=== PATIENT | female | born 1990 | race Hispanic/Latino ===

== ENCOUNTER 2022-12-14 14:54 | Emergency (ER) | payer OTHER ==
[~2022-12-14] VITALS: Ht 167.6 cm; Wt 93.4 kg
[2022-12-14 14:55] VITALS: BP 112/78; PULSE 77; RESP 16
[2022-12-14] MEDS ORDERED: ACETAMINOPHEN WITH CODEINE 1 TAB TAB PO ONE (16:00)
[2022-12-14] MEDS ORDERED: IBUP-2070 PO (17:37)
== END 2022-12-14 17:56 | disposition home or self-care (01) ==
LOC: EDH 14:54
DX: S83.8X2A Sprain of other specified parts of left knee, initial encounter (principal); X58.XXXA Exposure to other specified factors, initial encounter; Y93.89 Activity, other specified; Y92.89 Other specified places as the place of occurrence of the external cause; Y99.8 Other external cause status
CPT/HCPCS: 29505; 73562

== ENCOUNTER 2023-07-19 21:30 | Emergency (ER) | payer OTHER ==
[~2023-07-19] VITALS: Ht 172.7 cm; Wt 89.1 kg
[~2023-07-19 21:30] MED LIST: IBUP-2070 PO
[2023-07-19 21:47] LABS: BASOPHILS # (AUTO) 0.03 K/uL (0.00-0.20); BASOPHILS % (AUTO) 0.3 % (0.0-5.0); EOSINOPHILS # (AUTO) 0.15 K/uL (0.00-0.70); EOSINOPHILS % (AUTO) 1.3 % (0.0-8.0); HEMATOCRIT 41.4 % (36-48); IMMATURE GRANULOCYTE ABSOLUTE 0.06 K/uL (0-1); LYMPHOCYTES % (AUTO) 16.7 % (21.0-51.0); MEAN CORPUSCULAR HEMOGLOBIN 29.2 pg (27.0-33.0); MEAN CORPUSCULAR HGB CONC 33.8 g/dL (32.0-36.0); MEAN CORPUSCULAR VOLUME 86.3 fL (79-99); MONOCYTES # (AUTO) 0.9 K/uL (0.1-1.0); MONOCYTES % (AUTO) 7.6 % (3.0-13.0); NEUTROPHILS # (AUTO) 8.6 K/uL (1.8-7.7); NEUTROPHILS % (AUTO) 73.6 % (40.0-77.0); PLATELET COUNT (AUTO) 268 K/uL (130-400); RED CELL DISTRIBUTION WIDTH 12.1 % (11.0-15.5); WHITE BLOOD COUNT (AUTO) 11.7 K/uL (4.8-10.8)
[2023-07-19 21:48] LABS: APPEARANCE,URINE CLEAR (CLEAR); BILIRUBIN,URINE NEGATIVE (NEGATIVE); COLOR,URINE LIGHT-YELLOW (YELLOW); GLUCOSE, URINE (UA) NEGATIVE (NEGATIVE); KETONES,URINE NEGATIVE (NEGATIVE); LEUKOCYTE ESTERASE ,URINE 25 Leu/uL (NEGATIVE); NITRATE,URINE NEGATIVE (NEGATIVE); OCCULT BLOOD,URINE NEGATIVE (NEGATIVE); PH,URINE 5.5 (5.0-8.0); PROTEIN,URINE NEGATIVE (NEGATIVE); UROBILINOGEN,URINE 0.2 mg/dL (0.2-1.0)
[2023-07-19 21:49] LABS: ADD UA MICROSCOPIC YES
[2023-07-19 21:53] LABS: BACTERIA,URINE RARE /HPF (None Seen); MUCUS,URINE RARE LPF (None Seen); SQUAMOUS EPITHELIAL CELL,UR FEW /HPF (0-2); YEAST,URINE BUDDING RARE /HPF (None Seen)
[2023-07-19 21:54] LABS: HCG,QUALITATIVE URINE NEGATIVE (NEGATIVE)
[2023-07-19 22:02] LABS: SARS-CoV-2, RNA, NAAT NEGATIVE SARS CoV-2 (NEGATIVE)
[2023-07-19 22:03] LABS: RAPID GROUP A STREP positive (NEGATIVE)
[2023-07-19 22:07] LABS: INFLUENZA TYPE A Negative For Type A (NEGATIVE); INFLUENZA TYPE B Negative For Type B (NEGATIVE)
[2023-07-19 22:13] LABS: CREATININE 0.8 mg/dL (0.5-1.5); POTASSIUM 3.9 mmol/L (3.5-5.1)
[2023-07-19 22:17] LABS: ALBUMIN 3.8 g/dL (3.5-5.0); BILIRUBIN,TOTAL 0.3 mg/dL (0.2-1.0); TOTAL PROTEIN, SERUM 7.5 g/dL (6.0-8.3)
[2023-07-20] MEDS: FAMOTIDINE 20MG TAB PO ONE (00:54)
[2023-07-20] MEDS: METRONIDAZOLE 500 MG TABLET PO SCH (00:54)
[2023-07-20] MEDS: METOCLOPRAMIDE 10 MG TABLET PO ONE (00:54)
[2023-07-20] MEDS: PENICILLIN V POTASSIUM 500 MG TABLET PO ONE (00:56)
[2023-07-20] MEDS ORDERED: PENI500T2 PO (01:56)
[2023-07-20] MEDS ORDERED: METR-172 PO (01:56)
[2023-07-20] MEDS ORDERED: FAMO-136 PO (01:56)
[2023-07-20] MEDS ORDERED: METO-296 PO (01:56)
[2023-07-20 02:27] VITALS: BP 128/79; PULSE 88; RESP 19; O2SAT 99
== END 2023-07-20 02:30 | disposition home or self-care (01) ==
LOC: EDH 21:30
DX: K52.9 Noninfective gastroenteritis and colitis, unspecified (principal); J02.0 Streptococcal pharyngitis; N39.0 Urinary tract infection, site not specified; Z98.890 Other specified postprocedural states; Z20.822 Contact with and (suspected) exposure to COVID-19
CPT/HCPCS: 36415; 80053; 81001; 81025; 83690; 84484; 85025; 87635; 87804; 87880; 93005

== ENCOUNTER 2024-12-09 20:44 | Emergency (ER) | payer SELFPAY ==
[~2024-12-09] VITALS: Ht 170.2 cm; Wt 86.2 kg
[~2024-12-09 20:44] MED LIST changes: +FAMO-136 PO; +METO-296 PO; +METR-172 PO; +PENI500T2 PO
--- NOTE | 2024-12-09 21:19 | ERN ---
General Chief Complaint: Shoulder Injury/Pain Stated Complaint: LEFT SHOULDER PAIN Time Seen by MD: 20:51 History of Present Illness Initial Comments 34-year-old healthy female who was moving a bale of hay a day ago and today has excruciating pain that starts on her left lateral neck, she points to her trapezius, and then migrates down to her left deltoid and left tricep area. Distal neuro muscular intact. No deformation of left arm Allergies: Coded Allergies: No Known Allergies (Unverified Allergy, Unknown, 12/14/22) Home Meds Active Scripts Famotidine (Pepcid) 20 Mg Tablet, 20 MG PO BID, #60 TAB 2 Refills Prov:CHELSIE AGUIRRE Sr., MD 07/20/23 Metoclopramide HCl (Reglan) 10 Mg Tablet, 10 MG PO QIDP PRN for NAUSEA, #30 TAB 2 Refills Prov:CHELSIE AGUIRRE Sr., MD 07/20/23 Penicillin V Potassium (Penicillin V Potassium) 500 Mg Tablet, 1 TAB PO QID for 10 Days, #40 TAB 0 Refills Prov:CHELSIE AGUIRRE Sr., MD 07/20/23 Metronidazole (Metronidazole) 500 Mg Tablet, 500 MG PO QID for 10 Days, #40 TAB 0 Refills Prov:CHELSIE AGUIRRE Sr., MD 07/20/23 Ibuprofen (Ibuprofen) 600 Mg Tablet, 600 MG PO Q6H PRN for PAIN, #30 TAB Prov:JONNIE BERRIOS V [facility]ITION[facility] 12/14/22 Past Medical History Past Medical History: No Pertinent History Past Surgical History: ROS Dictation Review of systems is negative beyond the chief complaint and HPI. Physical Exam Neck Comment Left trapezius muscle tenderness. Extending down to left deltoid and then to the left triceps area. Distal neurovascular intact good arms and hands strength. MDM I have ordered plain films of her left shoulder. The plain films of her left shoulder show no fractures or dislocations. ED Course Orders Procedure Category Date Status Time Shoulder Comp 2+Vws Lt RAD 12/09/24 Taken 21:11 Orphenadrine Citrate PHA 12/09/24 Complete (Norflex) 21:30 Current Medications Medications (Trade) Dose Ordered Sig/Anne Route PRN Reason Start Time Stop Time Status Last Admin Dose Admin Orphenadrine Citrate (Norflex) 60 mg ONCE ONCE IM 12/09/24 21:30 12/09/24 21:31 DC 12/09/24 21:58 Vital Signs Date Time Temp Pulse Resp B/P (MAP) Pulse Ox O2 Delivery O2 Flow Rate FiO2 12/09/24 21:30 98.1 72 16 114/62 98 Room Air* 0 21 12/09/24 20:45 98.1 75 18 113/64 99 Room Air DX & DISP Disposition: Discharge Departure Impression: Primary Impression: Sprain of left shoulder Additional Impression: Acute neck sprain Condition: Stable Scripts Ketorolac Tromethamine (Toradol) 10 Mg Tab 1 TAB PO Q6HPRN PRN for pain for 5 Days, #20 TAB 0 Refills Prov: LENY BRAVO MD 12/09/24 Cyclobenzaprine HCl (Flexeril) 10 Mg Tab 10 MG PO TID for muscle sstiffness, #14 TAB 0 Refills Prov: LENY BRAVO MD 12/09/24 Additional Instructions: You have suffered a neck sprain and shoulder sprain from moving the bale of hay. Our x-rays show no fractures or noon dislocations. I have given you a muscle relaxant which should help with the pain and I have also given you a prescriptions for muscle relaxant and pain medication. Please treat the area with ice packs and rest. Always wrapped the ice and a towel do not place it directly in contact against the skin. Please follow-up with your primary care physician if these symptoms do not improve over the next several days. Referrals: SELF,REFERRAL (PCP) LENY BRAVO MD Dec 09, 2024 21:19
[2024-12-09] MEDS: ORPHENADRINE 60MG/2ML IM ONE (21:58)
[2024-12-09] MEDS ORDERED: KETO10 PO (22:01)
[2024-12-09] MEDS ORDERED: CYCL10TA16 PO (22:01)
[2024-12-09 22:25] VITALS: BP 114/62; PULSE 70; RESP 16; TEMP 98; O2SAT 98
--- NOTE | 2024-12-09 22:30 | HMCIMG ---
EXAM: CR Left Shoulder, 2 views. CLINICAL HISTORY: Pain. COMPARISON: None provided. FINDINGS: No acute fracture or aggressive appearing osseous lesion. Mild osteoarthritis in the acromioclavicular and glenohumeral joints. The soft tissues are unremarkable. IMPRESSION: No acute bony abnormality is evident. Mild osteoarthritis. /[place]
== END 2024-12-09 22:38 | disposition home or self-care (01) ==
LOC: EDH 20:44
DX: S43.402A Unspecified sprain of left shoulder joint, initial encounter (principal); S13.9XXA Sprain of joints and ligaments of unspecified parts of neck, initial encounter; Z79.899 Other long term (current) drug therapy; Z98.890 Other specified postprocedural states; X58.XXXA Exposure to other specified factors, initial encounter; Y93.89 Activity, other specified; Y92.89 Other specified places as the place of occurrence of the external cause; Y99.8 Other external cause status
CPT/HCPCS: 73030; 96372; 99283; J2360